=== PATIENT | female | born 1955 | race Caucasian/White ===

== ENCOUNTER 2017-07-07 10:04 | Observation (INO) | payer BC ==
[2017-07-07 10:47] LABS: #Eosinphils 0.1 thou/uL (0.0-0.7); #Lymphocytes 0.4 thou/uL (1.20-3.40); #Monocytes 0.6 thou/uL (0.11-0.59); %Basophils 0.2 % (0.0-1.0); %Eosinophils 0.8 % (0.0-10.0); %Lymphocytes 5.1 % (21.0-51.0); %Monocytes 7.8 % (0.0-10.0); Hematocrit 30.9 % (36.0-47.0); Mean Platelet Volume 8.4 fL (7.4-10.4); Red Blood Cell (RBC) Count 3.21 mill/uL (4.20-5.40); White Blood Cell (WBC) Count 8.1 thou/uL (4.8-10.8)
[2017-07-07 11:11] LABS: ALT (SGPT) 20 U/L (8-55); AST (SGOT) 35 U/L (5-34); Alkaline Phosphatase 87 U/L (40-150); Anion Gap 10 mmol/L (10-20); BUN (Urea Nitrogen) 23 mg/dL (9.8-20.1); Bilirubin, Total 0.8 mg/dL (0.2-1.2); CK (CPK) 106 U/L (29-168); Calc. Creatinine Clearance 0 mL/min (70-130); Calcium 8.8 mg/dL (7.8-10.44); Carbon Dioxide 25 mmol/L (23-31); Chloride 107 mmol/L (98-107); Estimated GFR-MDRD 36; Globulin 2.4 g/dL (2.4-3.5); Protein, Total 5.5 g/dL (6.0-8.3)
[2017-07-07 11:16] LABS: Troponin I Less than 0.010 ng/mL (< 0.028)
[2017-07-07 11:18] LABS: Lactic Acid - Sepsis 1.1 mmol/L (0.5-2.2)
--- NOTE | 2017-07-07 11:29 | RAD ---
PORTABLE AP CHEST XRAY: DATE: 07/07/17. HISTORY: Chest pain, shortness of breath, and low blood pressure. COMPARISON: 02/23/17. FINDINGS: A dual-lead left subclavian AICD device remains in place. Cardiac silhouette does appear mildly enl arged but stable in size from the prior exam. There are increased perihilar interstitial opacities which were also noted on the prior study but slightly greater in the right perihilar region on today 's exam. Vascular calcifications in the thoracic aorta. No other interval change. IMPRESSION: Cardiomegaly with findings likely related to mild congestive heart failure and mild pulmonary edema. POS: [facility]
[2017-07-07] MEDS ORDERED: Ondansetron ODT 4 MG TAB PO PRN (14:31)
[2017-07-07] MEDS ORDERED: Ondansetron HCl/PF 4 MG/2 ML Vial IVP PRN (14:31)
[2017-07-07] MEDS ORDERED: Acetaminophen 325 MG TAB PO PRN ×2 (14:32→15:36)
[2017-07-07 14:45] VITALS: BMI 34.2
[2017-07-07] MEDS ORDERED: Lactated Ringer's 1,000 ML IV SCH ×2 (14:45→16:00)
[2017-07-07] MEDS ORDERED: Zolpidem Tartrate 5 MG TAB PO PRN (15:37)
[2017-07-07] MEDS ORDERED: Loperamide HCl 2 MG CAP PO PRN (18:37)
[2017-07-07] MEDS: Gabapentin 400 MG CAP PO SCH (19:26)
--- NOTE | 2017-07-07 20:30 | HP ---
DATE OF ADMISSION: 07/07/2017 ADMITTING PHYSICIAN: Washington Arellano M.D. HISTORY OF PRESENT ILLNESS: The patient is a 62-year-old female who has a known history of cardiomy opathy. She is status post pacemaker and defibrillator placement from several years ago after suffe ring cardiac arrest. She is followed by myself and Dr. Shaikh. She presented to the emergency room c omplaining of slight shortness of breath, lightheadedness. She states that she was feeling a little bit dizzy. She did not note any chest pain. She did not note any nausea, vomiting, diarrhea. No fever, no productive cough. She has a known history of recurrent anemia, which has been previously evaluated with colonoscopy an d EGD, all of which was normal. She has a history of chronic renal insufficiency, which has been ev aluated previously. She has not noted any other symptomatology. She was seen and evaluated in the emergency room. I was called by regarding her blood pressure. It was noted in her history, she den ies taking a beta chente, but she is on carvedilol 25 mg b.i.d. All workup in the ER was normal. It was felt like she will be admitted due to sustaining hypotensio n, but no loss of consciousness, other than the fact that she remained sleepy in the emergency room. As noted, she has a history of cardiomyopathy. She is status post defibrillator pacemaker placeme nt. Otherwise, no other medical issues are noted. ALLERGIES: She is allergic to DEMEROL. CURRENT MEDICATIONS: Levothyroxine 0.5 mg daily, Vyvanse 50 mg daily, simvastatin 20 mg daily, sert raline 100 mg daily, gabapentin 600 mg b.i.d., carvedilol 25 mg b.i.d., pantoprazole 40 mg daily, zo lpidem 10 mg at bedtime. PAST MEDICAL HISTORY: Significant as noted above for previous pacemaker-defibrillator placement. S he did suffer cardiac arrest several years ago, was resuscitated and revived. She is also status po st repair of right femur fracture. Medical history is positive for cardiomyopathy, hypertension, at tention deficit disorder, anemia as well as seizure disorder. SOCIAL/PERSONAL HISTORY: She does not drink, nor she uses alcohol. She is still working at this [employer]. REVIEW OF SYSTEMS: Gastrointestinal: Negative. Genitourinary: Negative. Cardiovascular: Positi ve for dizziness and lightheadedness. Musculoskeletal: Otherwise, negative. Neurologic: Otherwis e, negative. PHYSICAL EXAMINATION: VITAL SIGNS: Temperature 97.8, pulse 94, respirations 16, O2 sats 100%, blood pressure 118/56. GENERAL: She is alert, active, does not appear in any distress. HEENT: Normocephalic, atraumatic. Extraocular muscles are intact. Sclerae and conjunctivae clear. Throat clear. NECK: Supple, full range of motion, no masses. LUNGS: Reveal bilateral breath sounds. HEART: Reveals a regular rate and rhythm. There is a grade 2/6 very soft systolic murmur at the le ft sternal border. ABDOMEN: Soft, nontender, bowel sounds are active. No hepatosplenomegaly is noted. EXTREMITIES: No clubbing, edema or cyanosis otherwise noted. NEUROLOGICAL: She is alert and oriented x3. Cranial nerves II-XII appear to be grossly intact. LABORATORY DATA: Her hemoglobin is 9.9, hematocrit 30.9, white blood count is 8.1. Sodium 138, pot assium 4.2, chloride 107, CO2 of 25, BUN 23, creatinine 1.46. Troponin is less than 1.01. Chest x- ray does show some cardiomegaly, possible evidence of some mild pulmonary edema is otherwise noted. EKG is paced rhythm without acute changes. IMPRESSION: Hypotensive episode and fatigue, this could be related to the possibility of beta-block er dosing versus just simple dehydration. It does not appear to be septic at this point in time. I do not think this represents a pacemaker malfunction as well. PLAN: The patient will be observed overnight. We will go ahead and hold her carvedilol for now as well as in the morning. She may have to go home on a reduced dose. We will repeat lab work in a.m.
[2017-07-07] MEDS ORDERED: Atorvastatin Calcium 10 MG TAB PO SCH (21:00)
[2017-07-08 05:46] LABS: #Neutrophils 3.2 thou/uL (1.40-6.50); %Basophils 0.7 % (0.0-1.0); %Eosinophils 1.6 % (0.0-10.0); %Monocytes 8.4 % (0.0-10.0); Hematocrit 27.8 % (36.0-47.0); Mean Platelet Volume 8.7 fL (7.4-10.4); Red Blood Cell (RBC) Count 2.84 mill/uL (4.20-5.40); White Blood Cell (WBC) Count 4.4 thou/uL (4.8-10.8)
[2017-07-08 05:47] LABS: #Eosinphils 0.1 thou/uL (0.0-0.7); #Lymphocytes 0.7 thou/uL (1.20-3.40); #Monocytes 0.4 thou/uL (0.11-0.59)
[2017-07-08 05:57] LABS: Anion Gap 12 mmol/L (10-20); BUN (Urea Nitrogen) 22 mg/dL (9.8-20.1); Calc. Creatinine Clearance 59 mL/min (70-130); Calcium 8.2 mg/dL (7.8-10.44); Carbon Dioxide 20 mmol/L (23-31); Chloride 111 mmol/L (98-107); Estimated GFR-MDRD 43
[2017-07-08] MEDS ORDERED: Levothyroxine Sodium 50 MCG TAB PO SCH (06:00)
[2017-07-08 08:13] VITALS: BP 117/58; TEMP 98.3
[2017-07-08] MEDS ORDERED: LISDEXAMFETAMINE DIMESYLATE 50 MG PO SCH (09:00)
[2017-07-08] MEDS ORDERED: Folic Acid/Vit B Comp W-C PO SCH (09:00)
[2017-07-08] MEDS ORDERED: Hydrochlorothiazide 25 MG TAB PO SCH (09:00)
[2017-07-08] MEDS ORDERED: Ferrous Sulfate 325 MG TAB PO SCH (09:00)
[2017-07-08] MEDS ORDERED: Calcitriol 0.25 MCG CAP PO SCH (09:00)
[2017-07-08] MEDS: Gabapentin 400 MG CAP PO SCH (09:22)
--- NOTE | 2017-07-08 13:16 | CON ---
DATE OF CONSULTATION: 07/08/2017 PRIMARY CARE PHYSICIAN: Dr. Washington Arellano. PRIMARY CASING MIXER: Dr. Shayla Shaikh. REFERRING DOCTOR: Dr. Shaun Romero. REASON FOR CARDIOLOGY CONSULTATION: Syncope and history of pacemaker. HISTORY OF PRESENT ILLNESS: Ms. Mcintosh is a 62-year-old female with a significant histor y of dilated cardiomyopathy with AICD placement in 2013 and stage 3 chronic kidney disease. The pat allison presented to [facility] due to lightheadedness and weakness all day yester day. Yesterday, in the morning she wake up with lightheadedness and weakness, but she could managed go to work, but she was still sleepy and actually she was sleeping at the desk, she recommended to talk to worker to present to the emergency department for further evaluation and treatment. During the episode, the patient denies shortness of breath, chest pain or discomfort in her chest, palpitat ion or any other cardiac complaints. She drink pretty much half cup of coffee in the morning and [address] Pepper a day, because she was told to watch her fluid; however, she is having diarrhea se veral times a day, almost every other day. She is taking Imodium at this moment and also she has a history of iron deficiency anemia and she underwent colonoscopy and EGD in 03/2017, which revealed n o significant bleeding. She recently being seen by a bookmobile librarian for stage 3 chronic kidney diseas e. Last office visit was last Monday and she was told her kidney function is stable at this time and she is going to follow up with her doctor within 4 weeks for another lab work. Chest x-ray on 07/07/2017 showed cardiomyopathy with finding of mild congestive heart failure and mild pulmonary ed emily. She has a history of chronic back pain and she underwent to have a CT scan of spine for chroni c back pain, which revealed she has had moderate to severe stenosis in her spine and she has exercis ed with physical therapist as an outpatient. The patient's echocardiogram in 2013 revealed EF of 20%-25% and she underwent AICD placement in 2013 and last echocardiogram was in 2014, which shows EF of 40%-45% basal inferior wall hypokinesis, mod erate left ventricle dilation, mild left atrial enlargement, moderate to severe mitral regurgitation , and moderate pulmonary valve insufficiency. The patient underwent cardiac catheterization in 2010 , which showed EF of 40%-45% with mild global hypokinesis and with normal coronary arteries. Last s tress test was in 01/2017, which revealed normal myocardial perfusion study with EF of 58% and no ev idence of ischemia. She has her carotid Doppler study in 2014, which shows no evidence of significa nt stenosis. PAST MEDICAL HISTORY: 1. Dilated cardiomyopathy. 2. Hypertension. 3. Hyperlipidemia. 4. Hypothyroidism, which was treated with medical treatment. 5. Chronic kidney disease stage 3. 6. Chronic back pain. 7. Seizure disorder, last episode was a few years ago. PAST SURGICAL HISTORY: 1. Right femur fracture and repair in 2009. 2. Gastric sleeve procedure in 2010. 3. PVC ablation in 2014. 4. AICD placement in 2013. FAMILY HISTORY: Her mother underwent the pacemaker placement at age around 70-80s and her father un derwent cardiac stent placement. Other than that, there are no significant cardiovascular related h istory in her family. SOCIAL HISTORY: She is . She lives by herself. She works as a driver salesman. She has 3 child tariq, living well. She denies smoking, alcohol or illicit drug abuse. She drinks half cup of coffee in the morning and through the day, she usually have 2 cans of [address] free [address] Pepper, but she wiley s not drink fluid besides that. ALLERGIES: She is allergic to DEMEROL. CURRENT MEDICATIONS: Calcitriol 0.25 mg once a day, carvedilol 25 mg twice a day, ferrous sulfate 3 25 twice a day, folic acid 1 mg once a day, gabapentin 600 two tablets twice a day, hydrochlorothiaz chapin 12.5 mg 1 tablet once a day, levothyroxine 0.5 mg once a day, Protonix 40 mg once a day, Zoloft 100 mg once a day, simvastatin 20 mg once a day, Vyvanse 50 mg once a day, zolpidem 10 mg once a da y. REVIEW OF SYSTEMS: The following complete review of systems was negative, unless otherwise mentione d in the HPI or below. Constitutional: Weight loss or gain, sense of well being, ability to conduc t usual activities, exercise tolerance. Skin/Breast: Rash, itching, change in hair growth or loss, nail change, breast lumps, tenderness, swelling, nipple discharge. Eyes: Vision change, double vi rayray, tearing, blind spot or pain. She wears glasses for far sight. HEENT: Headache, vertigo, diz ziness, nasal bleeding, cold, obstruction, discharge, dental difficulty, gingival bleeding, neck sti ffness, pain, tenderness, mass in the thyroid or other areas. Cardiovascular: Precordial pain, sub sternal distress, palpitations, syncope, dyspnea on exertion, orthopnea, nocturnal dyspnea, edema, c yanosis, claudication. Respiratory: Pain, shortness of breath, wheezing, stridor, cough, hemoptysi s, fever or night sweats. Gastrointestinal: Poor appetite, dyspnea, indigestion, abdominal pain, n ausea, vomiting. Positive for chronic diarrhea, but no blood in the stool. Genitourinary: Urgency , frequency, dysuria, nocturia, hematuria, polyuria, oliguria, unusual color of urine. Musculoskele whitley: Positive for unstable balance. She walked with a walker, but negative for pain, swelling, red ness or heat of muscle or joint, limitation of motion, muscular weakness, atrophy or cramps. Neurol ogic: Conversion, paralysis, tremor, incoordination, difficulty with memory of speech, sensory or m otor disturbance, muscular coordination. Psychiatric: Her anxiety is stable with her current medic ation. PHYSICAL EXAMINATION: VITAL SIGNS: Blood pressure is 117/58, heart rate 78, respiratory rate 16, O2 saturation 97% with r oom air, temperature 98.3. Orthostatic blood pressure yesterday at 20:00, supine was 112/58, sittin g 118/56 and standing 103/54. GENERAL: Well-developed, well-nourished without any acute distress. HEAD: Normocephalic, atraumatic. EYES: Extraocular muscle movements are intact. ENT: Oral and nasal mucosa are moist without lesion. NECK: No JVD. Neck is supple and normal range of motion. LUNGS: Clear to auscultation bilaterally. No wheezing, rales or rhonchi noted. CARDIOVASCULAR: Regular rate and rhythm. Normal S1, S2. There are no S3 or S4. There is signific ant murmur in the left mid sternal upper border, but no hives, thrill, bruit, or rub noted. EXTREMITIES: There are 2+ pulses in the dorsal pedis, posterior tibial, and popliteal. Carotid pul ses are present without bruit or thrill, no edema in bilateral lower extremities. ABDOMEN: Soft and nontender to palpate, nondistended. Bowel sounds are actually hyperactive. MUSCULOSKELETAL: Able to move all extremities in her bed. SKIN: Warm and dry. No skin rash, lesion or bruise noted. NEUROLOGIC: Alert, oriented x4, awake. Normal affect, normal focal. PSYCHIATRIC: Mood and affect normal. EKG: Patient's EKG in the ER shows atrial paced with heart rate of 78 with possible LVH without ST segment change or T-wave inversion. The patient's AICD interrogation yesterday showed 14 episode of nonsustained ventricular tachycardia, but there is no discharge from her AICD to treat that V-tach or no shock. Last nonsustained V-tach was 06/08 almost at 2300, 3 seconds and the longest one was 4 second of nonsustained V-tach, which was in 12/2016. ASSESSMENT AND PLAN: 1. Generalized weakness, which is possibly secondary to hypotension from possible dehydration. Her blood pressures have been stable after she received total of 1500 mL of normal saline at ER. The p atient was recommended to have a couple glasses of water when she feels lightheadedness or weak and rest for 15-30 minutes and checked her blood pressure. At this time, today, she denies any lighthe adedness or weakness and even she walked to the bathroom herself with a walker. She did not feel an y dizziness or lightheadedness or fatigue. 2. Cardiomyopathy. Her 2D echo in 2014 showed an EF of 40%-45% and her AICD revealed normal result . She is on hydrochlorothiazide 12.5 mg once a day. She denies any shortness of breath or edema in her bilateral lower extremities. We would like to continue current medication and adjust her medic ation as appropriate. 3. AICD placement. Her current latest interrogation revealed normal. 4. Iron deficiency anemia. Patient's hemoglobin today was 8.7, hematocrit 27.8. She does not meet the transfusion criteria at this moment, but she is on iron supplement once a day, ferrous sulfate 325 mg once a day with Folic acid. We would like to continue to monitor. 5. Stage 3 chronic kidney disease. Her creatinine level today shows 1.25, which was 1.46 yesterda y on 07/07/2017 before she received normal saline. We would like to continue to monitor her creatin ine level. 6. Hyperlipidemia. She is on atorvastatin 10 mg once a day, but once the patient is discharged to the home, she can resume her Crestor 20 mg once a day. 7. Anxiety. The patient's emotional status is stable at this moment with current medications. 8. Hypothyroidism. The patient's TSH on 07/07/2017 was 1.7154 with levothyroxine 50 mcg once a day , which is managed by her primary care doctor. Thank you very much for allowing Cardiology service to participate in care of this patient. We will follow along with the patient care team and make further recommendations as appropriate.
--- NOTE | 2017-07-08 16:44 | ADD-CON ---
ADDENDUM Please refer to the dictation already done by the nurse practitioner, Mali Jose. I have already s kelechi and discussed the patient with her and would agree with the assessment and plan. HISTORY OF PRESENT ILLNESS: This is a very pleasant 62-year-old female I follow for many years. Isabella luong has developed a severe nonischemic cardiomyopathy. She has had an AICD implant last year or two. She has been anemic for many years, but has been having worsening of her anemia with hemoglobin act ually down to the level of 8.7 today, yesterday was 9.9. She has been seen by GI, but there has bee n no significant etiology found for the anemia. She has also been seen by the architectural draftsman. She de nies any blood in the stools. Recently, she has had some bouts of diarrhea. She has been trying to work. She continues to work at [employer] and noticed that she has become more fatigued and dizzy and l ightheaded, but has had no amy syncopal episodes. She was seen yesterday by the electrostatic powder coating technician for [employer] and the device was interrogated and was found to have normal function, normal threshold. Isabella luong has had some very short episodes of nonsustained ventricular tachycardia, but no actual shocks and no episodes have been long enough to even have the device actually charge ready to deliver the shoc k. She has been doing fine otherwise. She denies any chest pain or shortness of breath. She has h ad no lower extremity edema. She has lost weight, but most of this may be due to diarrhea. She did undergo a gastric sleeve procedure in the past and also lost some weight, but they have become plat eaued until she developed this diarrhea. This diarrhea is intermittent and as noted above, she had been seen by the spanish translator. From a cardiac standpoint, she appears to be stable and device was interrogated today and there were no significant abnormalities noted. She did have some short runs of nonsustained ventricular tachycardia, but otherwise unremarkable. She does have some pacing from the device also, this is a dual chamber device. She did have a stress test earlier in the [facility], which showed no evidence of ischemia and ejection fraction estimated at 45%-50%. PHYSICAL EXAMINAITON: GENERAL: Her examination shows a well-developed, well-nourished female who is in no acute distress at this time. VITAL SIGNS: Her blood pressure is 117/58. She is afebrile. Heart rate is 78, respiratory rate 16 . HEENT: Shows head to be normocephalic, atraumatic. Carotid pulses are present. CHEST: Clear to auscultation. CARDIOVASCULAR: Exam reveals a regular rate and rhythm. She has had no significant murmurs, heaves , thrills, bruits or rubs. ABDOMEN: Soft and nontender with positive bowel sounds. No organomegaly or masses were noted. Fem oral pulses are present. EXTREMITIES: Showed no clubbing, cyanosis or edema. NEUROLOGIC: She appears to be very stable. LABORATORY DATA: As noted, hemoglobin is 8.7, yesterday was 9.9, on 07/04/2017, hemoglobin was 10.6 . She has been taking iron supplements and also B12 injections. In 01/2016, hemoglobin was 11.4 an d in 2013, hemoglobin also was 11.4. Her BNP was slightly elevated at 165, which would not be unusu al. Cardiac enzymes are negative. Potassium was 3.7. Her creatinine was slightly elevated at 1.25 , which may be due to some mild dehydration due to the diarrhea. Otherwise, she has remained stable and from a cardiac standpoint except for the dizziness, which may be due to some dehydration associated with diarrhea , her Coreg actually was held, but at this time , we should stop the medication. Once the blood pressure remains relatively stable, I will resume t he medication, but half the dose until the blood pressure stabilizes and is above 120-130 systolical ly. At this time, I would decrease her down to 12.5 and 25 mg b.i.d. to 12.5 mg b.i.d. As far as h er other medications and treatment, I would agree with the present management. As far as I have con cerned, the patient is doing relatively well and she could be discharged home today. I will see her back in the office within the month.
== END 2017-07-08 13:11 | disposition home or self-care (01) ==
LOC: ERS 10:04 → 2SW 12:15
PROVIDERS: ADMIT Family Medicine; ATTEND Family Medicine
DX: I95.9 Hypotension, unspecified (principal); I42.0 Dilated cardiomyopathy; E78.5 Hyperlipidemia, unspecified; E03.9 Hypothyroidism, unspecified; I12.9 Hypertensive chronic kidney disease with stage 1 through stage 4 chronic kidney disease, or unspecified chronic kidney disease; N18.3 Chronic kidney disease, stage 3 (moderate); G89.29 Other chronic pain; G40.909 Epilepsy, unspecified, not intractable, without status epilepticus; F41.9 Anxiety disorder, unspecified; Z88.5 Allergy status to narcotic agent; Z79.899 Other long term (current) drug therapy; Z95.810 Presence of automatic (implantable) cardiac defibrillator; Z98.84 Bariatric surgery status; Z98.890 Other specified postprocedural states; Z82.49 Family history of ischemic heart disease and other diseases of the circulatory system
CPT/HCPCS: 36415; 36416; 71010; 80048; 80053; 82550; 82553; 83605; 83880; 84443; 84484; 85025; 93005; 96360; 96361; A4216; G0378

== ENCOUNTER 2017-08-08 08:23 | Outpatient (CLI) | payer BC ==
--- NOTE | 2017-08-08 09:39 | ULT ---
SPLENIC ULTRASOUND: Dedicated ultrasound of the spleen was performed as requested. HISTORY: Assess for spleen size. Anemia x 3 months. FINDINGS: The spleen has a normal sonographic appearance. The spleen is upper normal size measured at 11 x 4 c m. IMPRESSION: Unremarkable spleen. POS: [facility]
== END 2017-08-08 08:24 | disposition home or self-care (01) ==
LOC: ULT 08:23
PROVIDERS: ATTEND Internal Medicine Medical Oncology
DX: R16.1 Splenomegaly, not elsewhere classified (principal); D51.8 Other vitamin B12 deficiency anemias
CPT/HCPCS: 36415; 76705; 82607; 82728

== ENCOUNTER 2020-10-07 11:23 | Outpatient (CLI) | payer MEDICARE, BC ==
--- NOTE | 2020-10-07 12:54 | RAD ---
Right hip 2 views: HISTORY: Hip pain. FINDINGS: There are mild degenerative changes at the hip with medial joint narrowing. Mild spurring. No fract ure or acute lesion. Prior internal fixation of the shaft of the femur is partially imaged. IMPRESSION: Mild degenerative change right hip. POS: OFF
--- NOTE | 2020-10-07 12:55 | RAD ---
LEFT HIP 2 VIEWS: HISTORY: Hip pain. FINDINGS: Mild degenerative change. Mild spurring from the femoral head. Femoral head contour is normally yen ntained. No fracture or acute abnormality. IMPRESSION: Mild degenerative change left hip. POS: OFF
--- NOTE | 2020-10-07 12:55 | RAD ---
TWO VIEW CHEST: HISTORY: Dyspnea. COMPARISON: 07/07/2017. FINDINGS: Lungs appear clear of infiltrate. Heart size upper normal. Vascular markings normal. Pacemaker jefe ds again noted. Osseous structures unremarkable. IMPRESSION: No acute abnormality. POS: OFF
== END 2020-10-07 11:24 | disposition home or self-care (01) ==
LOC: BICRAD 11:23
PROVIDERS: ATTEND Family Medicine
DX: M25.551 Pain in right hip (principal); M25.552 Pain in left hip; R06.00 Dyspnea, unspecified; M16.0 Bilateral primary osteoarthritis of hip; M79.604 Pain in right leg; M79.605 Pain in left leg
CPT/HCPCS: 36415; 71046; 85379

== ENCOUNTER 2020-12-02 11:21 | Outpatient (CLI) | payer MEDICARE, BC | END 2020-12-02 11:22 | disposition home or self-care (01) | LOC: BICRAD 11:21 | PROVIDERS: ATTEND Family Medicine | DX: M25.562 Pain in left knee (principal); M17.12 Unilateral primary osteoarthritis, left knee; M16.12 Unilateral primary osteoarthritis, left hip ==

== ENCOUNTER 2021-02-23 11:07 | Outpatient (CLI) | payer MEDICARE, BC | END 2021-02-23 11:08 | disposition home or self-care (01) | LOC: BICMAMMO 11:07 | PROVIDERS: ATTEND Family Medicine | DX: Z12.31 Encounter for screening mammogram for malignant neoplasm of breast (principal) | CPT/HCPCS: 77063; 77067 ==

== ENCOUNTER 2021-05-05 09:05 | Outpatient (CLI) | payer MEDICARE, BC | END 2021-05-05 09:06 | disposition home or self-care (01) | LOC: BICCT 09:05 | PROVIDERS: ATTEND Nurse Practitioner Family | DX: M48.062 Spinal stenosis, lumbar region with neurogenic claudication (principal); M47.816 Spondylosis without myelopathy or radiculopathy, lumbar region | CPT/HCPCS: 72131 ==

== ENCOUNTER → 2021-08-05 | Day surgery (SDC) | payer MEDICARE, BC ==
[2021-08-05 07:19] VITALS: BMI 29.2
== END ==
LOC: RAD 06:54
PROVIDERS: ATTEND Surgery
PROC: B01B1ZZ Fluoroscopy of Spinal Cord using Low Osmolar Contrast (ICD-10-PCS; principal; 2021-08-05)
DX: M47.26 Other spondylosis with radiculopathy, lumbar region (principal); M43.16 Spondylolisthesis, lumbar region; K80.20 Calculus of gallbladder without cholecystitis without obstruction; N83.8 Other noninflammatory disorders of ovary, fallopian tube and broad ligament; Z79.899 Other long term (current) drug therapy; Z88.5 Allergy status to narcotic agent; Z95.810 Presence of automatic (implantable) cardiac defibrillator
CPT/HCPCS: 62304; 72120; 72132

== ENCOUNTER 2022-04-14 07:38 | Outpatient (CLI) | payer MEDICARE, BC | END 2022-04-14 07:39 | disposition home or self-care (01) | LOC: LABBT 07:38 | PROVIDERS: ATTEND Internal Medicine Gastroenterology | DX: Z20.822 Contact with and (suspected) exposure to COVID-19 (principal); Z86.010 Personal history of colon polyps | CPT/HCPCS: 87811 ==

== ENCOUNTER 2022-04-19 05:42 | Day surgery (SDC) | payer MEDICARE, BC ==
[2022-04-15 12:25] VITALS: BMI 31.4
== END 2022-04-19 09:47 | disposition home or self-care (01) ==
LOC: SDC 05:42
PROVIDERS: ATTEND Internal Medicine Gastroenterology
PROC: 0DBK8ZX Excision of Ascending Colon, Via Natural or Artificial Opening Endoscopic, Diagnostic (ICD-10-PCS; principal; 2022-04-19)
DX: Z12.11 Encounter for screening for malignant neoplasm of colon (principal); D12.2 Benign neoplasm of ascending colon; K57.30 Diverticulosis of large intestine without perforation or abscess without bleeding; K63.89 Other specified diseases of intestine; Z86.010 Personal history of colon polyps; Z79.890 Hormone replacement therapy; Z79.899 Other long term (current) drug therapy; Z88.5 Allergy status to narcotic agent
CPT/HCPCS: 88305

== ENCOUNTER 2022-04-28 08:36 | Outpatient (CLI) | payer MEDICARE, BC ==
[~2022-04-28 08:36] MED LIST: Lidocaine 1% MPF 2 ML VIAL ONE; PROPOFOL 200 MG/20 ML VIAL ONE; Phenylephrine 10 MG/ML VIAL ONE
== END 2022-04-28 08:37 | disposition home or self-care (01) ==
LOC: BICMAMMO 08:36
PROVIDERS: ATTEND Family Medicine
DX: Z12.31 Encounter for screening mammogram for malignant neoplasm of breast (principal); Z13.820 Encounter for screening for osteoporosis; Z78.0 Asymptomatic menopausal state; E28.39 Other primary ovarian failure; M81.0 Age-related osteoporosis without current pathological fracture; M85.89 Other specified disorders of bone density and structure, multiple sites; Z91.89 Other specified personal risk factors, not elsewhere classified; Z80.3 Family history of malignant neoplasm of breast
CPT/HCPCS: 77063; 77067; 77080; J2370; J2704

== ENCOUNTER 2023-11-02 09:06 | Outpatient (CLI) | payer BC, MEDICARE | END 2023-11-02 09:07 | disposition home or self-care (01) | LOC: BICCT 09:06 | PROVIDERS: ATTEND Internal Medicine Cardiovascular Disease | DX: R60.0 Localized edema (principal); I87.1 Compression of vein | CPT/HCPCS: 82565 ==

== ENCOUNTER 2023-11-20 13:38 | Outpatient (CLI) | payer MEDICARE | END 2023-11-20 13:39 | disposition home or self-care (01) | LOC: BICULT 13:38 | PROVIDERS: ATTEND Internal Medicine Cardiovascular Disease | DX: R60.0 Localized edema (principal); I82.402 Acute embolism and thrombosis of unspecified deep veins of left lower extremity ==

== ENCOUNTER 2024-05-23 12:49 | Outpatient (CLI) | payer MEDICARE | END 2024-05-23 12:50 | disposition home or self-care (01) | LOC: BICMAMMO 12:49 | DX: Z78.0 Asymptomatic menopausal state (principal); M81.0 Age-related osteoporosis without current pathological fracture | CPT/HCPCS: 77080 ==

== ENCOUNTER 2024-05-26 11:07 | Emergency (ER) | payer MEDICARE ==
[2024-05-26] MEDS ORDERED: Dexamethasone 10 MG/ML VIAL ONE (11:23)
[2024-05-26] MEDS ORDERED: Ketorolac Tromethamine 30 MG (1 mL) VIAL ONE (11:23)
[2024-05-26 11:49] LABS: Bacteria/HPF None Seen HPF (None Seen); Bilirubin Negative (Negative); Blood, Urine Negative (Negative); CAUTI Indications for Culture Pelvic or flank pain; Clarity Clear (Clear); Glucose, Urine (Dipstick) Normal (Negative); Ketone, Urine Negative (Negative); Leukocyte Negative Leu/uL (Negative); Nitrite Negative (Negative); Protein, Urine (Dipstick) Negative (Neg-Trace); RBC/HPF 0-3 HPF (0-3); Specific Gravity, Urine 1.013 (1.002-1.036); Squamous Epithelial 0-3 HPF (0-3); Urobilinogen Normal mg/dL (Less than 2); WBC/HPF None Seen HPF (0-3)
[2024-05-26 11:51] LABS: Urine Culture Reflex No No
[2024-05-26] MEDS ORDERED: traMADol HCl 50 MG TAB ONE (14:07)
== END 2024-05-26 14:12 | disposition home or self-care (01) ==
LOC: ERS 11:07
DX: M54.50 Low back pain, unspecified (principal); M48.061 Spinal stenosis, lumbar region without neurogenic claudication; I11.0 Hypertensive heart disease with heart failure; I50.9 Heart failure, unspecified
CPT/HCPCS: 72131; 81001; J1100; J1885; 51701; 96372

== ENCOUNTER 2024-09-16 08:04 | Emergency (ER) | payer MEDICARE ==
[2024-09-16] MEDS ORDERED: Lidocaine 1% w/Epinephrine 1:100K 20 ML VIAL ONE (08:33)
[2024-09-16] MEDS ORDERED: Bacitracin 1 PK ONE (09:51)
== END 2024-09-16 10:08 | disposition home or self-care (01) ==
LOC: ERS 08:04
DX: S81.012A Laceration without foreign body, left knee, initial encounter (principal); I11.0 Hypertensive heart disease with heart failure; I50.9 Heart failure, unspecified; E78.5 Hyperlipidemia, unspecified; E03.9 Hypothyroidism, unspecified; Z79.899 Other long term (current) drug therapy; Z79.890 Hormone replacement therapy; W01.0XXA Fall on same level from slipping, tripping and stumbling without subsequent striking against object, initial encounter
CPT/HCPCS: 12004; 99283